=== PATIENT | female | born 1955 | race Caucasian/White ===

== ENCOUNTER 2018-04-01 05:35 | Day surgery (SDC) | payer OTHER ==
[~2018-04-01] VITALS: Ht 157.5 cm; Wt 77.1 kg
[2018-04-01] MEDS ORDERED: CLINDAMYCIN PHOS 600 MG/ D5W 50 ML PREMIX IV ONE (07:00)
[2018-04-01] MEDS ORDERED: IOHEXOL 50 ML IV ONE (07:13)
[2018-04-01] MEDS ORDERED: LR 1,000 ML IV SCH (08:19)
[2018-04-01] MEDS ORDERED: MEPERIDINE HCL/PF 25 MG/ML DISP.SYRIN IVP PRN (08:30)
[2018-04-01] MEDS ORDERED: METOCLOPRAMIDE HCL 10 MG/2 ML VIAL IVP PRN (08:30)
[2018-04-01] MEDS ORDERED: MEPERIDINE HCL/PF 50 MG/ML AMP IVP PRN ×2 (08:30)
[2018-04-01] MEDS ORDERED: D5/0.45 NS 1,000 ML IV SCH (08:42)
[2018-04-01] MEDS ORDERED: HYDROcodone/ACETAMIN 5-325 MG TAB (NORCO/ VICODIN) PO PRN ×2 (08:45)
[2018-04-01] MEDS ORDERED: HYDROmorphone 1 MG INJ. 1 MG/ML AMPUL IVP PRN (08:45)
[2018-04-01] MEDS ORDERED: MEPERIDINE HCL/PF 50 MG/ML AMP ONE (09:03)
[2018-04-01] MEDS ORDERED: HYDROcodone/ACETAMIN 5-325 MG TAB (NORCO/ VICODIN) ONE ×2 (10:31→12:42)
[2018-04-01 10:32] VITALS: BP_SYST 113
== END 2018-04-01 13:10 | disposition home or self-care (01) ==
LOC: SMU 05:35 → SDS 05:35
PROVIDERS: ATTEND Colon & Rectal Surgery
DX: K80.10 Calculus of gallbladder with chronic cholecystitis without obstruction (principal); K21.9 Gastro-esophageal reflux disease without esophagitis; I67.1 Cerebral aneurysm, nonruptured; I70.0 Atherosclerosis of aorta; M62.561 Muscle wasting and atrophy, not elsewhere classified, right lower leg; M54.12 Radiculopathy, cervical region; J44.9 Chronic obstructive pulmonary disease, unspecified; G89.29 Other chronic pain; F33.9 Major depressive disorder, recurrent, unspecified; M54.16 Radiculopathy, lumbar region; Z79.899 Other long term (current) drug therapy; M81.0 Age-related osteoporosis without current pathological fracture; I48.0 Paroxysmal atrial fibrillation; G14 Postpolio syndrome; F41.8 Other specified anxiety disorders; F11.20 Opioid dependence, uncomplicated; Z88.8 Allergy status to other drugs, medicaments and biological substances; Z88.0 Allergy status to penicillin; Z68.31 Body mass index [BMI] 31.0-31.9, adult
CPT/HCPCS: 47563; 74300; 76000; 88304; C1727; C1758; J2175; J3490; J7120; Q9967

== ENCOUNTER 2023-07-05 04:43 | Emergency (ER) | payer OTHER, MEDICAID ==
[~2023-07-05] VITALS: Ht 157.5 cm; Wt 86.2 kg
[~2023-07-05 04:43] MED LIST: DILT120C89 PO
[2023-07-05 05:00] VITALS: BP_SYST 155; PULSE 79; RESP 20; TEMP 98.7; O2SAT 94
[2023-07-05 05:46] LABS: BASOPHILS # (AUTO) 0.1 K/uL (0.0-0.2); BASOPHILS % (AUTO) 1.2 % (0.0-2.0); EOSINOPHILS # (AUTO) 0.1 K/uL (0.0-0.4); EOSINOPHILS % (AUTO) 3.2 % (0.0-4.0); HEMATOCRIT 34.5 % (36-48); HEMOGLOBIN 10.8 g/dL (12.0-16.0); LYMPHOCYTES # (AUTO) 1.1 K/uL (1.0-5.5); LYMPHOCYTES % (AUTO) 24.3 % (20.5-51.5); MEAN CORPUSCULAR HEMOGLOBIN 26 pg (27-31); MEAN CORPUSCULAR HGB CONC 31 % (32-36); MEAN CORPUSCULAR VOLUME 82 fL (79.0-98.0); MONOCYTES # (AUTO) 0.7 K/uL (0.0-1.0); MONOCYTES % (AUTO) 15.5 % (1.7-9.3); NEUTROPHILS # (AUTO) 2.6 K/uL (1.8-7.7); NEUTROPHILS % (AUTO) 55.8 % (40.0-70.0); PLATELET COUNT (AUTO) 233 K/uL (130-430); RED BLOOD CELL COUNT(AUTO) 4.21 MIL/uL (4.2-6.2); RED CELL DISTRIBUTION WIDTH 17.4 % (9.0-15.0); WHITE BLOOD COUNT (AUTO) 4.6 K/uL (4.8-10.8)
[2023-07-05 05:58] LABS: ANION GAP 8 (5-15); CALCIUM 8.5 mg/dL (8.4-11.0); CARBON DIOXIDE 28 mmol/L (23-29); CHLORIDE 106 mmol/L (98-107); CREATININE 0.83 mg/dL (0.55-1.30); GFR AFRICAN AMERICAN 88 mL/min (>90); GLUCOSE 105 mg/dL (74-106); POTASSIUM 3.8 mmol/L (3.5-5.1); SODIUM SERUM 142 mmol/L (136-145); UREA NITROGEN, BLOOD 21 mg/dL (8-21)
[2023-07-05 06:08] LABS: ALANINE AMINOTRANSFERASE 12 U/L (12-78); ALBUMIN 3.3 g/dL (3.4-4.8); ASPARTATE AMINOTRANSFERASE 18 U/L (10-37); TOTAL BILIRUBIN 0.2 mg/dL (0.0-1.0)
[2023-07-05 06:09] LABS: GFR NON AFRICAN-AMERICAN 73 mL/min (>90)
[2023-07-05 06:16] VITALS: BP_SYST 155; PULSE 79; RESP 20; TEMP 98.7; O2SAT 94
== END 2023-07-05 06:18 | disposition left against medical advice (07) ==
LOC: SED 04:43
DX: T17.298A Other foreign object in pharynx causing other injury, initial encounter (principal); J44.9 Chronic obstructive pulmonary disease, unspecified; I10 Essential (primary) hypertension; Z88.0 Allergy status to penicillin; Z88.5 Allergy status to narcotic agent; Z91.040 Latex allergy status; Z79.899 Other long term (current) drug therapy; W45.8XXA Other foreign body or object entering through skin, initial encounter; Y93.89 Activity, other specified; Y92.89 Other specified places as the place of occurrence of the external cause; Y99.8 Other external cause status
CPT/HCPCS: 36415; 71045; 80053; 83605; 84484; 85025; 93005; 99285